=== PATIENT | male | born 1990 | race African-American/Black ===

== ENCOUNTER 2023-06-11 07:36 | Emergency (ER) | payer OTHER ==
[~2023-06-11] VITALS: Ht 177.8 cm; Wt 84.1 kg
[2023-06-11 07:43] VITALS: TEMP 98
[2023-06-11] MEDS ORDERED: KETOROLAC TROMETHAMINE 60 MG/2 ML VIAL IM ONE (09:15)
[2023-06-11] MEDS ORDERED: IBUP-1492 PO (09:19)
[2023-06-11] MEDS ORDERED: METH-659 PO (09:21)
[2023-06-11 10:00] VITALS: BP 152/94; PULSE 71; RESP 18
== END 2023-06-11 10:41 | disposition home or self-care (01) ==
LOC: EMS 07:42
DX: S29.012A Strain of muscle and tendon of back wall of thorax, initial encounter (principal); X58.XXXA Exposure to other specified factors, initial encounter; Y93.89 Activity, other specified; Y92.89 Other specified places as the place of occurrence of the external cause; Y99.8 Other external cause status
CPT/HCPCS: 99283; 71045; 96372; J1885